=== PATIENT | female | born 1970 | race Caucasian/White ===

== ENCOUNTER 2022-07-19 07:14 | Inpatient (IN) | payer OTHER ==
[2022-07-19] MEDS ORDERED: PROPOFOL 20 ML ONE ×3 (08:51→10:55)
[2022-07-19] MEDS ORDERED: Esmolol 100 MG/10 ML VIAL ONE (08:51)
[2022-07-19] MEDS ORDERED: Lidocaine 1% PF 5 ML VIAL ONE (08:52)
[2022-07-19] MEDS ORDERED: PROPOFOL 40 ML ONE (09:37)
[2022-07-19] MEDS ORDERED: SUGAMMADEX SODIUM 200 MG/2 ML VIAL ONE (09:57)
[2022-07-19] MEDS ORDERED: Propofol 1,000 MG/100 ML VIAL IV ONE (11:07)
[2022-07-19] MEDS ORDERED: Midazolam HCl 2 mg/2 ml Vial ONE (11:19)
[2022-07-19] MEDS ORDERED: Bisacodyl 10 MG SUPP PR PRN (11:25)
[2022-07-19] MEDS ORDERED: Ondansetron PF 4 MG/2 ML Vial IVP PRN (11:25)
[2022-07-19] MEDS ORDERED: Ventilator Sedation Protocol 1 EACH FS PRN (11:31)
[2022-07-19] MEDS ORDERED: Dextrose 5% in Water 1,000 ML IV PRN (11:32)
[2022-07-19] MEDS ORDERED: Dextrose 50% Abboject 50 ML SYRINGE SLOW IVP PRN (11:32)
[2022-07-19] MEDS ORDERED: HumaLOG 300 UNITS/3 ML VIAL SC PRN (11:32)
[2022-07-19] MEDS ORDERED: FENTANYL 2,000MCG/100-0.9%NACL 100 ML IVPB SCH (11:45)
[2022-07-19] MEDS ORDERED: Propofol BOLUS 1,000 MG/100 ML VIAL IV PRN (11:45)
[2022-07-19] MEDS ORDERED: Fentanyl BOLUS 250 ML IVPB PRN (11:45)
[2022-07-19 12:09] LABS: Actual Bicarbonate (HCO3a) 21.1 mEq/L (22-28); Base Excess (BEa) -8.9 mEq/L (-2.0 to +3.0); CO2 Tension 63.6 mmHg (35.0-45.0); Calcium, Ionized (arterial) 1.18 mmol/L (1.12-1.30); Carboxyhemoglobin (COHb) 0.7 gm% (0.0-3.0); Hemoglobin (Hb) 14.5 g/dL (12.0-16.0); O2 Tension (PaO2), arterial 78.2 mmHg (80.0-100.0); Potassium - ABG Lab 3.8 mmol/L (3.70-5.30); Puncture Site RRA; pH, Arterial 7.14 (7.35-7.45)
[2022-07-19] MEDS ORDERED: Furosemide 40 MG/4 ML VIAL SLOW IVP SCH (12:15)
[2022-07-19 12:17] LABS: ALT (SGPT) 18 U/L (8-55); AST (SGOT) 32 U/L (5-34); Alkaline Phosphatase 92 U/L (40-110); Anion Gap 16 mmol/L (10-20); BUN (Urea Nitrogen) 5 mg/dL (9.8-20.1); Bilirubin, Total 1.1 mg/dL (0.2-1.2); Calc. Creatinine Clearance 138 mL/min (70-130); Calcium 8.7 mg/dL (7.8-10.44); Carbon Dioxide 22 mmol/L (22-29); Chloride 104 mmol/L (98-107); Estimated GFR 62; Globulin 2.8 g/dL (2.4-3.5); Glucose 208 mg/dL (70-105); Magnesium 1.7 mg/dL (1.6-2.6); Potassium 3.7 mmol/L (3.5-5.1); Protein, Total 6.8 g/dL (6.0-8.3); Sodium 138 mmol/L (136-145)
[2022-07-19 12:34] LABS: #Basophils 0.1 10x3/uL (0.0-0.2); #Eosinphils 0.2 10x3/uL (0.0-0.5); #Monocytes 0.6 10x3/uL (0.0-1.1); %Basophils 0.5 % (0.0-2.0); %Eosinophils 1.1 % (0.0-6.0); %Lymphocytes 9.9 % (18.0-47.0); %Monocytes 4.5 % (0.0-10.0); %Neutrophils 83.5 % (40.0-75.0); Hemoglobin 14.1 g/dL (12.0-15.5); Mean Corpuscular HGB CONC 31.8 g/dL (32.0-36.0); Mean Corpuscular Hemoglobin 27.8 pg (27.0-33.0); Mean Corpuscular Volume 87.2 fl (81.6-98.3); Mean Platelet Volume 10.7 fl (7.4-10.4); Platelet Count 110 10x3/uL (150-450); RBC Distribution Width 14.2 % (11.5-14.5); Red Blood Cell (RBC) Count 5.08 10x6/uL (3.90-5.03); White Blood Cell (WBC) Count 13.2 10x3/uL (3.5-10.5)
[2022-07-19] MEDS: Propofol 1,000 MG/100 ML VIAL IV PRN ×4 (12:52→23:22)
[2022-07-19] MEDS ORDERED: Lisinopril 5 MG TAB PER TUBE SCH (13:00)
[2022-07-19] MEDS ORDERED: Carvedilol 6.25 MG TAB PER TUBE SCH (13:00)
[2022-07-19] MEDS: Lorazepam 2 MG/ML VIAL SLOW IVP PRN ×2 (13:00→19:58)
[2022-07-19] MEDS: Clindamycin/D5W 600 MG in Premix Bag 1 BAG IVPB SCH ×2 (13:44→21:23)
[2022-07-19] MEDS ORDERED: Ipratropium/Albuterol 3 ML NEB NEB PRN (14:08)
[2022-07-19 14:18] LABS: Actual Bicarbonate (HCO3a) 24.9 mEq/L (22-28); Base Excess (BEa) -1.2 mEq/L (-2.0 to +3.0); CO2 Tension 46.4 mmHg (35.0-45.0); Calcium, Ionized (arterial) 1.06 mmol/L (1.12-1.30); Carboxyhemoglobin (COHb) 0.8 gm% (0.0-3.0); Hemoglobin (Hb) 14.7 g/dL (12.0-16.0); O2 Tension (PaO2), arterial 57.6 mmHg (80.0-100.0); Potassium - ABG Lab 3.7 mmol/L (3.70-5.30); Puncture Site RRA; pH, Arterial 7.35 (7.35-7.45)
[2022-07-19] MEDS: Carvedilol 6.25 MG TAB PER TUBE SCH (16:18)
[2022-07-19] MEDS ORDERED: Clindamycin/D5W 300 MG/50 ML BAG IVPB SCH (18:00)
[2022-07-19] MEDS: Famotidine/PF 20 mg/2ml Vial SLOW IVP SCH (21:23)
[2022-07-20] MEDS: methylPREDNISolone Sod Succ 40 MG VIAL IVP SCH ×4 (00:07→16:59)
[2022-07-20] MEDS: Propofol 1,000 MG/100 ML VIAL IV PRN ×8 (02:22→23:27)
[2022-07-20] MEDS: Clindamycin/D5W 600 MG in Premix Bag 1 BAG IVPB SCH ×3 (05:35→21:40)
[2022-07-20 05:51] LABS: ALT (SGPT) 19 U/L (8-55); AST (SGOT) 50 U/L (5-34); Alkaline Phosphatase 78 U/L (40-110); Anion Gap 22 mmol/L (10-20); BUN (Urea Nitrogen) 10 mg/dL (9.8-20.1); Bilirubin, Total 1.6 mg/dL (0.2-1.2); Calc. Creatinine Clearance 96 mL/min (70-130); Calcium 8.9 mg/dL (7.8-10.44); Carbon Dioxide 18 mmol/L (22-29); Chloride 103 mmol/L (98-107); Estimated GFR 40; Globulin 3.6 g/dL (2.4-3.5); Glucose 174 mg/dL (70-105); Magnesium 1.7 mg/dL (1.6-2.6); Potassium 3.9 mmol/L (3.5-5.1); Protein, Total 7.6 g/dL (6.0-8.3); Sodium 139 mmol/L (136-145)
[2022-07-20 05:51] LABS: Hemoglobin 14.3 g/dL (12.0-15.5); Mean Corpuscular HGB CONC 33.8 g/dL (32.0-36.0); Mean Corpuscular Hemoglobin 27.8 pg (27.0-33.0); Mean Corpuscular Volume 82.3 fl (81.6-98.3); Mean Platelet Volume 11.9 fl (7.4-10.4); Platelet Count 119 10x3/uL (150-450); RBC Distribution Width 14.3 % (11.5-14.5); Red Blood Cell (RBC) Count 5.14 10x6/uL (3.90-5.03); White Blood Cell (WBC) Count 12.9 10x3/uL (3.5-10.5)
[2022-07-20 06:52] LABS: MDiff Complete? YES
[2022-07-20 06:58] LABS: Band 5 % (5-11); Eosinophils 2 % (0-10); Lymphocytes 10 % (21-51); Monocytes 3 % (0-10); Neutrophil 80 % (42-75)
[2022-07-20 07:00] LABS: Platelet Morphology Comment Appears Decreased; RBC Morphology Normal
[2022-07-20] MEDS ORDERED: Furosemide 40 MG TAB PO SCH (08:00)
[2022-07-20] MEDS: Famotidine/PF 20 mg/2ml Vial SLOW IVP SCH ×2 (08:57→21:40)
[2022-07-20] MEDS: Carvedilol 6.25 MG TAB PER TUBE SCH ×2 (08:59→16:58)
[2022-07-20] MEDS ORDERED: Lisinopril 5 MG TAB PER TUBE SCH (09:00)
[2022-07-20] MEDS: Magnesium 2 GM/50 ML(in water) 2 GM in Premix Bag 1 BAG IVPB SCH ×2 (09:03→11:15)
[2022-07-20] MEDS ORDERED: Lidocaine 1% (PF) 30 ML VIAL ONE (10:23)
[2022-07-20] MEDS: Lorazepam 2 MG/ML VIAL SLOW IVP PRN (10:25)
[2022-07-20] MEDS ORDERED: Lidocaine 2% PF 5 ML VIAL FS SCH (10:30)
[2022-07-20 11:57] LABS: Actual Bicarbonate (HCO3a) 22.1 mEq/L (22-28); Base Excess (BEa) 1.6 mEq/L (-2.0 to +3.0); Calcium, Ionized (arterial) 1.08 mmol/L (1.12-1.30); Carboxyhemoglobin (COHb) 0.1 gm% (0.0-3.0); Hemoglobin (Hb) 14.5 g/dL (12.0-16.0); O2 Tension (PaO2), arterial 52.3 mmHg (80.0-100.0); Potassium - ABG Lab 3.1 mmol/L (3.70-5.30); Puncture Site RRA; pH, Arterial 7.56 (7.35-7.45)
[2022-07-20] MEDS: HumaLOG 300 UNITS/3 ML VIAL SC PRN ×3 (13:00→23:50)
[2022-07-20] MEDS ORDERED: Lactated Ringer's 500 ML IV SCH (22:30)
[2022-07-20 23:50] LABS: Bilirubin Neg (Negative); Blood, Urine Negative (Negative); Clarity Clear (Clear); Glucose, Urine (Dipstick) Normal (Negative); Ketone, Urine Negative (Negative); Leukocyte 25 (Negative); Nitrite Negative (Negative); Protein, Urine (Dipstick) 30 mg/dl (Neg-Trace); Specific Gravity, Urine 1.025 (1.005-1.030); Urobilinogen Normal mg/dL (Less than 2)
[2022-07-20] MEDS: methylPREDNISolone Sod Succ/PF 125 MG/2 ML VIAL IVP SCH (23:50)
[2022-07-21 00:23] LABS: Bacteria/HPF 1+ HPF (None Seen); CAUTI Indications for Culture Alt mental st,lethar; RBC/HPF None Seen HPF (0-3); Squamous Epithelial 0-3 HPF (0-3)
[2022-07-21 00:24] LABS: Urine Culture Reflex No No
[2022-07-21] MEDS: Propofol 1,000 MG/100 ML VIAL IV PRN ×7 (02:29→22:37)
[2022-07-21] MEDS: Clindamycin/D5W 600 MG in Premix Bag 1 BAG IVPB SCH ×3 (05:22→21:15)
[2022-07-21] MEDS: methylPREDNISolone Sod Succ/PF 125 MG/2 ML VIAL IVP SCH ×3 (05:22→17:50)
[2022-07-21] MEDS: HumaLOG 300 UNITS/3 ML VIAL SC PRN ×2 (05:34→17:52)
[2022-07-21 06:26] LABS: Anion Gap 17 mmol/L (10-20); BUN (Urea Nitrogen) 14 mg/dL (9.8-20.1); Calc. Creatinine Clearance 113 mL/min (70-130); Carbon Dioxide 20 mmol/L (22-29); Chloride 105 mmol/L (98-107); Potassium 3.4 mmol/L (3.5-5.1); Sodium 139 mmol/L (136-145)
[2022-07-21 06:27] LABS: ALT (SGPT) 19 U/L (8-55); AST (SGOT) 43 U/L (5-34); Albumin 3.7 g/dL (3.5-5.0); Alkaline Phosphatase 66 U/L (40-110); Bilirubin, Total 1.1 mg/dL (0.2-1.2); Calcium 8.5 mg/dL (7.8-10.44); Estimated GFR 49; Globulin 2.9 g/dL (2.4-3.5); Glucose 170 mg/dL (70-105); Magnesium 2.7 mg/dL (1.6-2.6); Protein, Total 6.6 g/dL (6.0-8.3)
[2022-07-21 07:21] LABS: #Monocytes 0.6 10x3/uL (0.0-1.1); #Neutrophils 12.2 10x3/uL (1.5-8.4); %Basophils 0.1 % (0.0-2.0); %Neutrophils 84.3 % (40.0-75.0); Hemoglobin 13.2 g/dL (12.0-15.5); Mean Corpuscular HGB CONC 33.8 g/dL (32.0-36.0); Mean Corpuscular Volume 82.6 fl (81.6-98.3); Mean Platelet Volume 11.6 fl (7.4-10.4); Platelet Count 147 10x3/uL (150-450); RBC Distribution Width 14.5 % (11.5-14.5); Red Blood Cell (RBC) Count 4.72 10x6/uL (3.90-5.03); White Blood Cell (WBC) Count 14.5 10x3/uL (3.5-10.5)
[2022-07-21] MEDS ORDERED: Furosemide 40 MG TAB PO SCH (07:30)
[2022-07-21] MEDS: Famotidine/PF 20 mg/2ml Vial SLOW IVP SCH ×2 (08:29→21:14)
[2022-07-21] MEDS: Lactated Ringer's 1,000 ML IV SCH ×2 (08:40→16:24)
[2022-07-21] MEDS ORDERED: Carvedilol 3.125 MG TAB PO SCH (10:00)
[2022-07-21] MEDS: Dexmedetomidine In 0.9 % NaCl 100 ML IVPB SCH ×2 (11:35→16:25)
[2022-07-21] MEDS ORDERED: Potassium Chloride 20 MEQ in Premix Bag 1 BAG IVPB SCH (15:00)
[2022-07-21] MEDS: Carvedilol 3.125 MG TAB PO SCH (16:30)
[2022-07-21] MEDS: methylPREDNISolone Sod Succ 40 MG VIAL IVP SCH (17:50)
[2022-07-22] MEDS: Dexmedetomidine In 0.9 % NaCl 100 ML IVPB SCH ×6 (00:06→20:24)
[2022-07-22] MEDS: methylPREDNISolone Sod Succ/PF 125 MG/2 ML VIAL IVP SCH ×2 (00:11→07:34)
[2022-07-22] MEDS: Lactated Ringer's 1,000 ML IV SCH (03:20)
[2022-07-22] MEDS: Propofol 1,000 MG/100 ML VIAL IV PRN ×4 (03:22→18:56)
[2022-07-22 04:58] LABS: Anion Gap 19 mmol/L (10-20); BUN (Urea Nitrogen) 20 mg/dL (9.8-20.1); Calc. Creatinine Clearance 123 mL/min (70-130); Calcium 8.5 mg/dL (7.8-10.44); Carbon Dioxide 20 mmol/L (22-29); Chloride 107 mmol/L (98-107); Estimated GFR 54; Glucose 173 mg/dL (70-105); Potassium 5.3 mmol/L (3.5-5.1); Sodium 141 mmol/L (136-145)
[2022-07-22 05:01] LABS: #Monocytes 0.5 10x3/uL (0.0-1.1); #Neutrophils 9.7 10x3/uL (1.5-8.4); %Basophils 0.1 % (0.0-2.0); %Lymphocytes 14.6 % (18.0-47.0); %Neutrophils 80.1 % (40.0-75.0); Hemoglobin 13.9 g/dL (12.0-15.5); Mean Corpuscular HGB CONC 33.3 g/dL (32.0-36.0); Mean Corpuscular Hemoglobin 27.8 pg (27.0-33.0); Mean Corpuscular Volume 83.6 fl (81.6-98.3); Mean Platelet Volume 11.5 fl (7.4-10.4); Platelet Count 147 10x3/uL (150-450); RBC Distribution Width 14.6 % (11.5-14.5); White Blood Cell (WBC) Count 12.1 10x3/uL (3.5-10.5)
[2022-07-22] MEDS: Clindamycin/D5W 600 MG in Premix Bag 1 BAG IVPB SCH ×3 (07:34→21:33)
[2022-07-22] MEDS: Carvedilol 3.125 MG TAB PO SCH ×2 (08:19→16:11)
[2022-07-22] MEDS: Famotidine/PF 20 mg/2ml Vial SLOW IVP SCH ×2 (08:19→21:34)
[2022-07-22] MEDS: HumaLOG 300 UNITS/3 ML VIAL SC PRN ×2 (11:49→16:56)
[2022-07-22] MEDS: methylPREDNISolone Sod Succ 40 MG VIAL IVP SCH ×3 (12:19→23:22)
[2022-07-23] MEDS: Dexmedetomidine In 0.9 % NaCl 100 ML IVPB SCH ×2 (02:06→07:53)
[2022-07-23] MEDS: Propofol 1,000 MG/100 ML VIAL IV PRN ×2 (03:13→07:53)
[2022-07-23] MEDS: Clindamycin/D5W 600 MG in Premix Bag 1 BAG IVPB SCH ×3 (05:22→21:54)
[2022-07-23] MEDS: methylPREDNISolone Sod Succ 40 MG VIAL IVP SCH ×4 (05:23→23:07)
[2022-07-23 05:33] LABS: #Monocytes 0.6 10x3/uL (0.0-1.1); #Neutrophils 7.9 10x3/uL (1.5-8.4); %Basophils 0.3 % (0.0-2.0); %Lymphocytes 19.4 % (18.0-47.0); %Monocytes 5.5 % (0.0-10.0); Hemoglobin 14.2 g/dL (12.0-15.5); Mean Corpuscular HGB CONC 33.3 g/dL (32.0-36.0); Mean Corpuscular Hemoglobin 27.6 pg (27.0-33.0); Mean Corpuscular Volume 82.9 fl (81.6-98.3); Mean Platelet Volume 10.6 fl (7.4-10.4); Platelet Count 180 10x3/uL (150-450); RBC Distribution Width 14.3 % (11.5-14.5); Red Blood Cell (RBC) Count 5.15 10x6/uL (3.90-5.03); White Blood Cell (WBC) Count 10.6 10x3/uL (3.5-10.5)
[2022-07-23 05:35] LABS: Anion Gap 16 mmol/L (10-20); BUN (Urea Nitrogen) 24 mg/dL (9.8-20.1); Calc. Creatinine Clearance 132 mL/min (70-130); Calcium 8.3 mg/dL (7.8-10.44); Carbon Dioxide 20 mmol/L (22-29); Chloride 107 mmol/L (98-107); Estimated GFR 59; Glucose 165 mg/dL (70-105); Potassium 4.4 mmol/L (3.5-5.1); Sodium 139 mmol/L (136-145)
[2022-07-23] MEDS: Famotidine/PF 20 mg/2ml Vial SLOW IVP SCH ×2 (07:53→20:08)
[2022-07-23] MEDS: Carvedilol 3.125 MG TAB PO SCH ×2 (07:54→16:41)
[2022-07-23] MEDS: Lisinopril 2.5 MG TAB PO SCH (09:21)
[2022-07-23] MEDS ORDERED: Escitalopram Oxalate 10 mg Tablet PO SCH (10:45)
[2022-07-23] MEDS: Acetaminophen 325 MG TAB PO PRN (23:10)
[2022-07-23] MEDS: hydrALAZINE 20 MG/ML VIAL SLOW IVP PRN (23:15)
[2022-07-24] MEDS ORDERED: Ibuprofen 400 MG TAB PO SCH (02:15)
[2022-07-24] MEDS: hydrALAZINE 20 MG/ML VIAL SLOW IVP PRN (04:08)
[2022-07-24 04:23] LABS: #Monocytes 0.9 10x3/uL (0.0-1.1); #Neutrophils 12.1 10x3/uL (1.5-8.4); %Basophils 0.1 % (0.0-2.0); %Lymphocytes 12.8 % (18.0-47.0); %Monocytes 6.1 % (0.0-10.0); %Neutrophils 79.6 % (40.0-75.0); Hemoglobin 13.6 g/dL (12.0-15.5); Mean Corpuscular HGB CONC 32.6 g/dL (32.0-36.0); Mean Corpuscular Hemoglobin 27.8 pg (27.0-33.0); Mean Corpuscular Volume 85.1 fl (81.6-98.3); Mean Platelet Volume 10.7 fl (7.4-10.4); Platelet Count 242 10x3/uL (150-450); RBC Distribution Width 14.5 % (11.5-14.5); White Blood Cell (WBC) Count 15.2 10x3/uL (3.5-10.5)
[2022-07-24 04:34] LABS: Anion Gap 16 mmol/L (10-20); BUN (Urea Nitrogen) 25 mg/dL (9.8-20.1); Calc. Creatinine Clearance 136 mL/min (70-130); Calcium 8.5 mg/dL (7.8-10.44); Carbon Dioxide 21 mmol/L (22-29); Chloride 108 mmol/L (98-107); Estimated GFR 62; Glucose 120 mg/dL (70-105); Potassium 4.4 mmol/L (3.5-5.1); Sodium 141 mmol/L (136-145)
[2022-07-24] MEDS: Clindamycin/D5W 600 MG in Premix Bag 1 BAG IVPB SCH ×3 (05:54→22:02)
[2022-07-24] MEDS: methylPREDNISolone Sod Succ 40 MG VIAL IVP SCH ×3 (05:55→17:18)
[2022-07-24] MEDS: Acetaminophen 325 MG TAB PO PRN ×2 (06:52→20:00)
[2022-07-24] MEDS: Famotidine/PF 20 mg/2ml Vial SLOW IVP SCH ×2 (08:14→20:01)
[2022-07-24] MEDS: Lisinopril 2.5 MG TAB PO SCH (08:15)
[2022-07-24] MEDS: Carvedilol 3.125 MG TAB PO SCH ×2 (08:15→16:52)
[2022-07-24] MEDS: Escitalopram Oxalate 10 mg Tablet PO SCH (08:15)
[2022-07-24] MEDS ORDERED: Saccharomyces boulardii 250 MG CAP PO SCH (11:37)
[2022-07-24] MEDS ORDERED: Pantoprazole 40 MG VIAL IVP SCH (21:15)
[2022-07-24] MEDS ORDERED: Prazosin HCl 1 MG CAP PO SCH (22:15)
[2022-07-25] MEDS: methylPREDNISolone Sod Succ 40 MG VIAL IVP SCH ×4 (00:15→21:44)
[2022-07-25 04:48] LABS: #Monocytes 0.7 10x3/uL (0.0-1.1); #Neutrophils 9.3 10x3/uL (1.5-8.4); %Basophils 0.1 % (0.0-2.0); %Lymphocytes 11.9 % (18.0-47.0); %Monocytes 6.1 % (0.0-10.0); %Neutrophils 80.2 % (40.0-75.0); Hemoglobin 13.6 g/dL (12.0-15.5); Mean Corpuscular HGB CONC 33.1 g/dL (32.0-36.0); Mean Corpuscular Hemoglobin 27.8 pg (27.0-33.0); Mean Corpuscular Volume 83.9 fl (81.6-98.3); Mean Platelet Volume 10.4 fl (7.4-10.4); Platelet Count 203 10x3/uL (150-450); RBC Distribution Width 14.4 % (11.5-14.5); White Blood Cell (WBC) Count 11.5 10x3/uL (3.5-10.5)
[2022-07-25 04:56] LABS: Anion Gap 15 mmol/L (10-20); BUN (Urea Nitrogen) 22 mg/dL (9.8-20.1); Calc. Creatinine Clearance 147 mL/min (70-130); Calcium 8.5 mg/dL (7.8-10.44); Carbon Dioxide 21 mmol/L (22-29); Chloride 106 mmol/L (98-107); Estimated GFR 67; Glucose 140 mg/dL (70-105); Potassium 4.3 mmol/L (3.5-5.1); Sodium 138 mmol/L (136-145)
[2022-07-25] MEDS: Clindamycin/D5W 600 MG in Premix Bag 1 BAG IVPB SCH ×2 (05:43→13:44)
[2022-07-25] MEDS: HumaLOG 300 UNITS/3 ML VIAL SC PRN (06:36)
[2022-07-25] MEDS: Lisinopril 2.5 MG TAB PO SCH (08:22)
[2022-07-25] MEDS: Carvedilol 3.125 MG TAB PO SCH ×2 (08:22→17:23)
[2022-07-25] MEDS: Escitalopram Oxalate 10 mg Tablet PO SCH (08:22)
[2022-07-25] MEDS: Saccharomyces boulardii 250 MG CAP PO SCH (08:23)
[2022-07-25] MEDS: Famotidine/PF 20 mg/2ml Vial SLOW IVP SCH ×3 (08:26→21:51)
[2022-07-25] MEDS: Mometasone/Formoterol 60 PUFF AER INH SCH (20:14)
[2022-07-25] MEDS ORDERED: Melatonin 3 MG TAB PO PRN (20:57)
[2022-07-25] MEDS: Rosuvastatin 10 MG TAB PO SCH (21:41)
[2022-07-25] MEDS: Acetaminophen 325 MG TAB PO PRN (21:41)
[2022-07-25] MEDS: metFORMIN 500 MG TAB PO SCH (21:41)
[2022-07-25] MEDS: Prazosin HCl 1 MG CAP PO SCH (21:43)
[2022-07-26 05:41] LABS: #Monocytes 0.7 10x3/uL (0.0-1.1); #Neutrophils 8.8 10x3/uL (1.5-8.4); %Basophils 0.2 % (0.0-2.0); %Lymphocytes 14.4 % (18.0-47.0); %Monocytes 6.4 % (0.0-10.0); %Neutrophils 77.2 % (40.0-75.0); Hemoglobin 13.9 g/dL (12.0-15.5); Mean Corpuscular HGB CONC 32.4 g/dL (32.0-36.0); Mean Corpuscular Hemoglobin 27.4 pg (27.0-33.0); Mean Corpuscular Volume 84.6 fl (81.6-98.3); Mean Platelet Volume 10.1 fl (7.4-10.4); Platelet Count 192 10x3/uL (150-450); RBC Distribution Width 14.4 % (11.5-14.5); Red Blood Cell (RBC) Count 5.07 10x6/uL (3.90-5.03); White Blood Cell (WBC) Count 11.4 10x3/uL (3.5-10.5)
[2022-07-26 05:49] LABS: Anion Gap 18 mmol/L (10-20); BUN (Urea Nitrogen) 26 mg/dL (9.8-20.1); Calc. Creatinine Clearance 144 mL/min (70-130); Calcium 8.6 mg/dL (7.8-10.44); Carbon Dioxide 19 mmol/L (22-29); Chloride 108 mmol/L (98-107); Estimated GFR 68; Glucose 139 mg/dL (70-105); Potassium 4.7 mmol/L (3.5-5.1); Sodium 140 mmol/L (136-145)
[2022-07-26] MEDS: Mometasone/Formoterol 60 PUFF AER INH SCH ×2 (08:25→19:45)
[2022-07-26] MEDS: Carvedilol 3.125 MG TAB PO SCH ×2 (09:25→17:09)
[2022-07-26] MEDS: Saccharomyces boulardii 250 MG CAP PO SCH (09:25)
[2022-07-26] MEDS: Escitalopram Oxalate 10 mg Tablet PO SCH (09:26)
[2022-07-26] MEDS: Famotidine/PF 20 mg/2ml Vial SLOW IVP SCH ×3 (09:26→21:51)
[2022-07-26] MEDS: predniSONE 20 MG TAB PO SCH (09:26)
[2022-07-26] MEDS: Acetaminophen 325 MG TAB PO PRN (09:27)
[2022-07-26] MEDS: Lisinopril 2.5 MG TAB PO SCH (09:43)
[2022-07-26] MEDS: Rosuvastatin 10 MG TAB PO SCH (21:46)
[2022-07-26] MEDS: Prazosin HCl 1 MG CAP PO SCH (21:46)
[2022-07-26] MEDS: metFORMIN 500 MG TAB PO SCH (21:46)
[2022-07-27] MEDS: Mometasone/Formoterol 60 PUFF AER INH SCH (07:05)
[2022-07-27] MEDS: predniSONE 20 MG TAB PO SCH (09:55)
[2022-07-27] MEDS: Lisinopril 2.5 MG TAB PO SCH (09:55)
[2022-07-27] MEDS: Carvedilol 3.125 MG TAB PO SCH (09:55)
[2022-07-27] MEDS: Saccharomyces boulardii 250 MG CAP PO SCH (09:56)
[2022-07-27] MEDS: Escitalopram Oxalate 10 mg Tablet PO SCH (09:56)
[2022-07-27] MEDS: Famotidine/PF 20 mg/2ml Vial SLOW IVP SCH (09:57)
[2022-07-27 10:45] VITALS: BMI 49.6
[2022-07-27 12:13] VITALS: BP 138/85; TEMP 98.1
== END 2022-07-27 15:30 | disposition home or self-care (01) | DRG 207 ==
LOC: CSHSDC 07:14 → CSHICU 10:55 → CSHTELE 07-24 18:17
PROVIDERS: ADMIT Internal Medicine; ATTEND Internal Medicine
PROC: 5A1955Z Respiratory Ventilation, Greater than 96 Consecutive Hours (ICD-10-PCS; 2022-07-19)
PROC: 0DB98ZX Excision of Duodenum, Via Natural or Artificial Opening Endoscopic, Diagnostic (ICD-10-PCS; 2022-07-19)
PROC: 0DBN8ZZ Excision of Sigmoid Colon, Via Natural or Artificial Opening Endoscopic (ICD-10-PCS; 2022-07-19)
PROC: 4A133R1 Monitoring of Arterial Saturation, Peripheral, Percutaneous Approach (ICD-10-PCS; 2022-07-19)
PROC: 0BH17EZ Insertion of Endotracheal Airway into Trachea, Via Natural or Artificial Opening (ICD-10-PCS; 2022-07-19)
PROC: 0W9930Z Drainage of Right Pleural Cavity with Drainage Device, Percutaneous Approach (ICD-10-PCS; 2022-07-20)
PROC: 0WW930Z Revision of Drainage Device in Right Pleural Cavity, Percutaneous Approach (ICD-10-PCS; 2022-07-21)
PROC: 5A09457 Assistance with Respiratory Ventilation, 24-96 Consecutive Hours, Continuous Positive Airway Pressure (ICD-10-PCS; 2022-07-23)
PROC: 0WP9X0Z Removal of Drainage Device from Right Pleural Cavity, External Approach (ICD-10-PCS; principal; 2022-07-24)
DX: J69.0 Pneumonitis due to inhalation of food and vomit (principal); I50.21 Acute systolic (congestive) heart failure; J96.01 Acute respiratory failure with hypoxia; J96.02 Acute respiratory failure with hypercapnia; J93.83 Other pneumothorax; N17.9 Acute kidney failure, unspecified; J45.901 Unspecified asthma with (acute) exacerbation; Z68.43 Body mass index [BMI] 50.0-59.9, adult; I11.0 Hypertensive heart disease with heart failure; K21.9 Gastro-esophageal reflux disease without esophagitis; F32.A Depression, unspecified; F41.9 Anxiety disorder, unspecified; M19.90 Unspecified osteoarthritis, unspecified site; F39 Unspecified mood [affective] disorder; E66.01 Morbid (severe) obesity due to excess calories; E11.9 Type 2 diabetes mellitus without complications; E78.5 Hyperlipidemia, unspecified; G47.33 Obstructive sleep apnea (adult) (pediatric); K29.80 Duodenitis without bleeding; R53.81 Other malaise; K31.7 Polyp of stomach and duodenum; D12.5 Benign neoplasm of sigmoid colon; K64.9 Unspecified hemorrhoids; E87.6 Hypokalemia; Z79.899 Other long term (current) drug therapy; Z79.51 Long term (current) use of inhaled steroids; Z79.84 Long term (current) use of oral hypoglycemic drugs; Z88.0 Allergy status to penicillin; Z88.6 Allergy status to analgesic agent; Z98.890 Other specified postprocedural states; Z88.1 Allergy status to other antibiotic agents
CPT/HCPCS: 36415; 36416; 36600; 71045; 80048; 80053; 81001; 82805; 83735; 83880; 84484; 85025; 87324; 87449; 88305; 93306; 94002; 94003; 94150; 94660; 94760; 94762; C9113; J0360; J1650; J1815; J1940; J2001; J2060; J2704; J2920; J2930; J3475; J3480; J3490; J7120; J7512; S0028